=== PATIENT | female | born 1985 | race Caucasian/White ===

== ENCOUNTER 2018-05-05 22:35 | Emergency (ER) | payer OTHER ==
[2018-05-05 23:09] VITALS: BP 151/104
== END 2018-05-06 00:27 | disposition left against medical advice (07) ==
LOC: ED 22:35
DX: N12 Tubulo-interstitial nephritis, not specified as acute or chronic (principal); R10.9 Unspecified abdominal pain; N83.209 Unspecified ovarian cyst, unspecified side; Z86.2 Personal history of diseases of the blood and blood-forming organs and certain disorders involving the immune mechanism